=== PATIENT | male | born 1980 | race Caucasian/White ===

== ENCOUNTER → 2024-04-12 | Outpatient (CLI) | payer BC ==
[2024-04-12 16:02] LABS: BASO # 0.03 K/mm3 (0.02-0.10); EOS # 0.15 K/mm3 (0.04-0.40); EOS % 1.7 % (0.0-4.0); HEMATOCRIT 42.9 % (42.0-52.0); HEMOGLOBIN 14.8 g/dL (13.5-18.0); LYMPH# 2.14 K/mm3 (1.50-4.00); MEAN CELL VOLUME 81 fl (78-100); MEAN CORPUSCULAR HEMOGLOBIN 28 pg (27-31); MEAN CORPUSCULAR HGB CONC 35 g/dL (33-37); MEAN PLATELET VOLUME 9.3 fl (7.4-10.4); MONO # 0.62 K/mm3 (0.20-0.80); PLATELET COUNT 330 K/mm3 (130-400); RED BLOOD COUNT 5.28 M/mm3 (4.20-5.60); RED CELL DISTRIBUTION WIDTH 13.4 % (11.5-14.5); WHITE BLOOD COUNT 8.7 K/mm3 (4.8-10.8)
[2024-04-12 16:05] LABS: ALBUMIN 4.3 g/dL (3.5-5.0)
[2024-04-12 16:06] LABS: CALCIUM 9.5 mg/dL (8.3-10.5)
[2024-04-12 16:07] LABS: TOTAL PROTEIN 7.5 g/dL (6.4-8.3)
== END ==
LOC: LAB 15:34
PROVIDERS: Nurse Practitioner Family
DX: M25.521 Pain in right elbow (principal)

== ENCOUNTER → 2024-07-30 | Outpatient (CLI) | payer BC | LOC: LAB 08:59 | DX: M10.09 Idiopathic gout, multiple sites (principal) ==